=== PATIENT | female | born 1985 | race Caucasian/White ===

== ENCOUNTER 2019-02-10 14:57 | Emergency (ER) | payer OTHER ==
[~2019-02-10] VITALS: Ht 172.7 cm; Wt 86.2 kg
[2019-02-10] MEDS ORDERED: AMOXICILLIN 50500 MG PO (15:12)
[2019-02-10] MEDS ORDERED: TYLENOL WITH CO1 TA1 PO (15:12)
[2019-02-10] MEDS ORDERED: LIDOCAINE VISC100 ML SWISH&SPIT (15:12)
[2019-02-10 15:15] VITALS: BP 119/55
== END 2019-02-10 15:16 | disposition home or self-care (01) ==
LOC: M.ERS 14:57
DX: K04.7 Periapical abscess without sinus (principal); K02.9 Dental caries, unspecified

== ENCOUNTER 2019-06-30 12:08 | Emergency (ER) | payer OTHER ==
[~2019-06-30] VITALS: Ht 172.7 cm; Wt 88.9 kg
[~2019-06-30 12:08] MED LIST: AMOXICILLIN 50500 MG PO; LIDOCAINE VISC100 ML SWISH&SPIT; TYLENOL WITH CO1 TA1 PO
[2019-06-30 12:22] LABS: URINE BILIRUBIN NEGATIVE (Negative); URINE BLOOD NEGATIVE (Negative); URINE CLARITY CLEAR; URINE COLOR YELLOW; URINE GLUCOSE-RANDOM NEGATIVE (Negative); URINE KETONES NEGATIVE (Negative); URINE LEUKOCYTES-REFLEX NEGATIVE (Negative); URINE NITRITE-REFLEX NEGATIVE (Negative); URINE PROTEIN NEGATIVE (Negative); URINE SPECIFIC GRAVITY 1.025 (1.005-1.030); URINE UROBILINOGEN 0.2 E.U./dl (0.2-1.0)
[2019-06-30 12:47] LABS: INFLUENZA A ANTIGEN Negative (Negative); INFLUENZA B ANTIGEN Negative (Negative)
[2019-06-30] MEDS ORDERED: PHENERGAN 25 MG25 M1 PO (13:01)
[2019-06-30] MEDS ORDERED: ZPAK PO (13:01)
[2019-06-30 13:22] VITALS: BP 125/69
== END 2019-06-30 13:24 | disposition home or self-care (01) ==
LOC: M.ERS 12:08
PROVIDERS: Nurse Practitioner Family
DX: B34.9 Viral infection, unspecified (principal); F17.210 Nicotine dependence, cigarettes, uncomplicated

== ENCOUNTER 2019-07-26 20:31 | Emergency (ER) | payer OTHER ==
[~2019-07-26] VITALS: Ht 172.7 cm; Wt 88.5 kg
[~2019-07-26 20:31] MED LIST changes: +PHENERGAN 25 MG25 M1 PO; +ZPAK PO
[2019-07-26 20:37] VITALS: BP 138/73
[2019-07-26] MEDS ORDERED: MIRENA1 EACH INTRAUTERI (20:41)
[2019-07-26] MEDS ORDERED: HYDROCODON-ACE1 EAC8 PO (20:57)
[2019-07-26] MEDS ORDERED: CLEOCIN HCL300 MG PO (20:57)
== END 2019-07-26 21:08 | disposition home or self-care (01) ==
LOC: M.ERS 20:31
DX: K02.9 Dental caries, unspecified (principal); F17.210 Nicotine dependence, cigarettes, uncomplicated

== ENCOUNTER 2019-09-05 12:01 | Emergency (ER) | payer OTHER ==
[~2019-09-05] VITALS: Ht 172.7 cm; Wt 81.7 kg
[~2019-09-05 12:01] MED LIST changes: +CLEOCIN HCL300 MG PO; +HYDROCODON-ACE1 EAC8 PO; +MIRENA1 EACH INTRAUTERI
[2019-09-05 12:10] VITALS: BP 132/48
[2019-09-05] MEDS ORDERED: ZPAK PO (12:41)
[2019-09-05] MEDS ORDERED: VENTOLIN HFA 1818 GM INH (12:41)
== END 2019-09-05 12:56 | disposition home or self-care (01) ==
LOC: M.ERS 12:01
DX: J06.9 Acute upper respiratory infection, unspecified (principal); F17.210 Nicotine dependence, cigarettes, uncomplicated; Z88.1 Allergy status to other antibiotic agents; Z88.2 Allergy status to sulfonamides

== ENCOUNTER 2019-09-27 07:56 | Emergency (ER) | payer OTHER ==
[~2019-09-27] VITALS: Ht 172.7 cm; Wt 82.6 kg
[~2019-09-27 07:56] MED LIST changes: +VENTOLIN HFA 1818 GM INH
[2019-09-27 08:40] LABS: HEMATOCRIT 38.5 % (37.0-47.0); HEMOGLOBIN 13.1 gm/dL (12.0-15.0); MCH 31.5 pg (26.0-34.0); MCHC 34.1 g/dL (28.0-37.0); MCV 92.5 fL (80.0-100.0); MPV 9.5 fl. (7.2-11.1); RBC 4.17 mil/uL (4.20-5.00); RDW-CV 13.1 % (10.5-14.5); WBC 4.7 thou/uL (4.0-11.0)
[2019-09-27 08:51] LABS: CALCIUM 8.1 mg/dL (8.5-10.1); CREATININE 0.8 mg/dL (0.6-1.3); POTASSIUM 4.2 mmol/L (3.5-5.1)
[2019-09-27] MEDS ORDERED: PREDNISONE50 MG PO (10:02)
[2019-09-27] MEDS ORDERED: VENTOLIN HFA 1818 GM INH (10:02)
[2019-09-27 10:58] VITALS: BP 94/54
--- NOTE | 2019-09-28 14:01 | EKG ---
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
== END 2019-09-27 10:52 | disposition home or self-care (01) ==
LOC: M.ERS 07:56
PROVIDERS: Emergency Medicine Emergency Medical Services
DX: J40 Bronchitis, not specified as acute or chronic (principal); Z20.828 Contact with and (suspected) exposure to other viral communicable diseases; Z88.1 Allergy status to other antibiotic agents; Z88.2 Allergy status to sulfonamides

== ENCOUNTER 2019-11-05 22:18 | Emergency (ER) | payer OTHER ==
[~2019-11-05] VITALS: Ht 172.7 cm; Wt 81.7 kg
[~2019-11-05 22:18] MED LIST changes: +PREDNISONE50 MG PO
[2019-11-05] MEDS ORDERED: PREDNISONE50 MG PO (23:23)
[2019-11-05] MEDS ORDERED: PROAIR HFA8.5 GM INH (23:23)
[2019-11-05 23:32] VITALS: BP 96/65
== END 2019-11-05 23:36 | disposition home or self-care (01) ==
LOC: M.ERS 22:18
DX: J40 Bronchitis, not specified as acute or chronic (principal); Z88.1 Allergy status to other antibiotic agents; Z88.8 Allergy status to other drugs, medicaments and biological substances; Z79.899 Other long term (current) drug therapy

== ENCOUNTER 2019-12-16 17:02 | Emergency (ER) | payer OTHER ==
[~2019-12-16] VITALS: Ht 172.7 cm; Wt 81.7 kg
[~2019-12-16 17:02] MED LIST changes: +PROAIR HFA8.5 GM INH
[2019-12-16 18:11] LABS: INFLUENZA A ANTIGEN Negative (Negative); INFLUENZA B ANTIGEN Negative (Negative)
[2019-12-16] MEDS ORDERED: ZPAK PO (18:30)
[2019-12-16] MEDS ORDERED: MEDROLDOSEPACK PO (18:30)
[2019-12-16] MEDS ORDERED: PROMETH-CODEIN 65 ML PO (18:30)
[2019-12-16 18:40] VITALS: BP 136/70
== END 2019-12-16 18:41 | disposition home or self-care (01) ==
LOC: M.ERS 17:02
PROVIDERS: Nurse Practitioner Family
DX: J20.9 Acute bronchitis, unspecified (principal); Z20.828 Contact with and (suspected) exposure to other viral communicable diseases; Z88.1 Allergy status to other antibiotic agents; Z88.2 Allergy status to sulfonamides

== ENCOUNTER 2020-01-02 08:55 | Emergency (ER) | payer OTHER ==
[~2020-01-02] VITALS: Ht 172.7 cm; Wt 81.7 kg
[~2020-01-02 08:55] MED LIST changes: +MEDROLDOSEPACK PO; +PROMETH-CODEIN 65 ML PO
[2020-01-02 09:04] VITALS: BP 129/90
== END 2020-01-02 10:18 | disposition home or self-care (01) ==
LOC: M.ERS 08:55
DX: B34.9 Viral infection, unspecified (principal); Z20.828 Contact with and (suspected) exposure to other viral communicable diseases; Z88.2 Allergy status to sulfonamides

== ENCOUNTER 2020-01-19 06:42 | Emergency (ER) | payer OTHER ==
[~2020-01-19] VITALS: Ht 172.7 cm; Wt 81.2 kg
[2020-01-19 06:50] VITALS: BP 112/71
[2020-01-19] MEDS ORDERED: PENICILLIN VK500 MG PO (07:20)
[2020-01-19] MEDS ORDERED: NORCO 5-325 TA1 EAC2 PO (07:20)
[2020-01-19] MEDS ORDERED: IBUPROFEN 800800 M1 PO (07:20)
== END 2020-01-19 07:36 | disposition home or self-care (01) ==
LOC: M.ERS 06:42
DX: K08.89 Other specified disorders of teeth and supporting structures (principal); F17.210 Nicotine dependence, cigarettes, uncomplicated; Z88.2 Allergy status to sulfonamides

== ENCOUNTER 2020-01-23 12:50 | Emergency (ER) | payer OTHER ==
[~2020-01-23] VITALS: Ht 167.6 cm; Wt 81.7 kg
[~2020-01-23 12:50] MED LIST changes: +IBUPROFEN 800800 M1 PO; +NORCO 5-325 TA1 EAC2 PO; +PENICILLIN VK500 MG PO
[2020-01-23 13:40] VITALS: BP 133/76
== END 2020-01-23 13:41 | disposition home or self-care (01) ==
LOC: M.ERS 12:50
DX: Z20.828 Contact with and (suspected) exposure to other viral communicable diseases (principal); Z88.2 Allergy status to sulfonamides

== ENCOUNTER 2020-04-06 10:47 | Emergency (ER) | payer OTHER ==
[~2020-04-06] VITALS: Ht 172.7 cm; Wt 77.1 kg
[2020-04-06 11:01] LABS: URINE BILIRUBIN NEGATIVE (Negative); URINE BLOOD NEGATIVE (Negative); URINE CLARITY CLEAR; URINE COLOR YELLOW; URINE GLUCOSE-RANDOM NEGATIVE (Negative); URINE KETONES NEGATIVE (Negative); URINE LEUKOCYTES-REFLEX NEGATIVE (Negative); URINE NITRITE-REFLEX NEGATIVE (Negative); URINE PROTEIN NEGATIVE (Negative); URINE UROBILINOGEN 0.2 E.U./dl (0.2-1.0)
[2020-04-06 11:39] VITALS: BP 118/62
== END 2020-04-06 11:39 | disposition home or self-care (01) ==
LOC: M.ERS 10:47
PROVIDERS: Nurse Practitioner Family
DX: J98.8 Other specified respiratory disorders (principal); Z20.822 Contact with and (suspected) exposure to COVID-19; R19.7 Diarrhea, unspecified; Z88.1 Allergy status to other antibiotic agents; Z88.2 Allergy status to sulfonamides

== ENCOUNTER 2020-04-17 05:26 | Emergency (ER) | payer OTHER ==
[~2020-04-17] VITALS: Ht 172.7 cm; Wt 77.1 kg
[2020-04-17] MEDS ORDERED: PROAIR HFA8.5 GM INH (05:44)
[2020-04-17 06:08] LABS: INFLUENZA A ANTIGEN Negative (Negative); INFLUENZA B ANTIGEN Negative (Negative)
[2020-04-17] MEDS ORDERED: PREDNISONE50 MG PO (06:37)
[2020-04-17] MEDS ORDERED: HYDROCODONE-ACE15 ML PO (06:37)
[2020-04-17 06:43] VITALS: BP 114/86
== END 2020-04-17 06:46 | disposition home or self-care (01) ==
LOC: M.ERS 05:26
PROVIDERS: Emergency Medicine
DX: J06.9 Acute upper respiratory infection, unspecified (principal); J04.0 Acute laryngitis; Z20.822 Contact with and (suspected) exposure to COVID-19; Z88.1 Allergy status to other antibiotic agents; Z88.2 Allergy status to sulfonamides

== ENCOUNTER 2020-05-12 05:15 | Emergency (ER) | payer OTHER ==
[~2020-05-12] VITALS: Ht 172.7 cm; Wt 78.5 kg
[~2020-05-12 05:15] MED LIST changes: +HYDROCODONE-ACE15 ML PO
[2020-05-12] MEDS ORDERED: PREDNISONE50 MG PO (06:35)
[2020-05-12 06:41] VITALS: BP 127/71
== END 2020-05-12 06:41 | disposition home or self-care (01) ==
LOC: M.ERS 05:15
DX: J40 Bronchitis, not specified as acute or chronic (principal); Z20.822 Contact with and (suspected) exposure to COVID-19; Z88.2 Allergy status to sulfonamides; Z88.1 Allergy status to other antibiotic agents

== ENCOUNTER 2020-06-17 05:34 | Emergency (ER) | payer OTHER ==
[~2020-06-17] VITALS: Ht 172.7 cm; Wt 77.1 kg
[2020-06-17] MEDS ORDERED: PROAIR HFA8.5 GM INH ×2 (05:44→06:32)
[2020-06-17] MEDS ORDERED: PREDNISONE50 MG PO (06:32)
[2020-06-17] MEDS ORDERED: FLONASE 0.05%50 MCG NARES (06:32)
[2020-06-17 06:42] VITALS: BP 120/76
--- NOTE | 2020-06-18 12:07 | EKG ---
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[place] : 1985 Requested By: Tiffany Frost Order Number: [id number] Rod MD: Salty Whitney Measurements Intervals [place] Rate: 72 P: 68 [place]: 170 QRS: 67 QRSD: 84 T: 34 QT: 364 QTc: 399 Interpretive Statements Sinus rhythm Baseline wander in lead(s) I,II,aVR Compared to ECG 09/27/2019 08:05:50 No significant changes Electronically Signed On 06-18-2020 12:07:29 CDT by Salty Whitney [email or web address] <ELECTRONICALLY SIGNED> By: Salty Whitney MD, [facility] 06/18/20 1207 0538 0538 Salty Whitney MD, [facility] /EPI
== END 2020-06-17 06:42 | disposition home or self-care (01) ==
LOC: M.ERS 05:34
DX: J98.01 Acute bronchospasm (principal); Z20.822 Contact with and (suspected) exposure to COVID-19; Z88.1 Allergy status to other antibiotic agents; Z88.2 Allergy status to sulfonamides

== ENCOUNTER 2020-06-23 09:28 | Emergency (ER) | payer OTHER ==
[~2020-06-23] VITALS: Ht 172.7 cm; Wt 77.1 kg
[~2020-06-23 09:28] MED LIST changes: +FLONASE 0.05%50 MCG NARES
[2020-06-23] MEDS ORDERED: TRAMADOL 50 MG50 MG PO (09:51)
[2020-06-23] MEDS ORDERED: CLEOCIN HCL300 MG PO (09:51)
[2020-06-23 09:55] VITALS: BP 144/94
== END 2020-06-23 09:55 | disposition home or self-care (01) ==
LOC: M.ERS 09:28
DX: K02.9 Dental caries, unspecified (principal); Z88.1 Allergy status to other antibiotic agents; Z88.8 Allergy status to other drugs, medicaments and biological substances; Z79.899 Other long term (current) drug therapy

== ENCOUNTER 2020-07-14 05:34 | Emergency (ER) | payer OTHER ==
[~2020-07-14] VITALS: Ht 172.7 cm; Wt 77.1 kg
[~2020-07-14 05:34] MED LIST changes: +TRAMADOL 50 MG50 MG PO
[2020-07-14 05:40] VITALS: BP 129/77
[2020-07-14] MEDS ORDERED: PROAIR HFA8.5 GM INH (05:44)
[2020-07-14] MEDS ORDERED: MEDROLDOSEPACK PO (06:12)
[2020-07-14] MEDS ORDERED: PENICILLIN VK500 MG PO (06:12)
--- NOTE | 2020-07-14 09:44 | EKG ---
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
== END 2020-07-14 06:29 | disposition home or self-care (01) ==
LOC: M.ERS 05:34
DX: J45.901 Unspecified asthma with (acute) exacerbation (principal); A69.1 Other Vincent's infections; Z88.1 Allergy status to other antibiotic agents; Z88.2 Allergy status to sulfonamides

== ENCOUNTER 2020-07-21 08:24 | Emergency (ER) | payer OTHER ==
[~2020-07-21] VITALS: Ht 172.7 cm; Wt 77.1 kg
[2020-07-21] MEDS ORDERED: PENICILLIN V P500 MG PO (10:21)
[2020-07-21 10:37] VITALS: BP 122/68
== END 2020-07-21 10:37 | disposition home or self-care (01) ==
LOC: M.ERS 08:24
DX: K04.7 Periapical abscess without sinus (principal); K02.9 Dental caries, unspecified; Z88.1 Allergy status to other antibiotic agents; Z88.2 Allergy status to sulfonamides

== ENCOUNTER 2020-09-09 10:34 | Emergency (ER) | payer OTHER ==
[~2020-09-09] VITALS: Ht 172.7 cm; Wt 77.1 kg
[~2020-09-09 10:34] MED LIST changes: +PENICILLIN V P500 MG PO
[2020-09-09 11:18] LABS: URINE BILIRUBIN NEGATIVE (Negative); URINE BLOOD NEGATIVE (Negative); URINE CLARITY CLEAR; URINE COLOR YELLOW; URINE GLUCOSE-RANDOM NEGATIVE (Negative); URINE KETONES NEGATIVE (Negative); URINE LEUKOCYTES 2+ (Negative); URINE NITRITE POSITIVE (Negative); URINE PROTEIN NEGATIVE (Negative); URINE SPECIFIC GRAVITY 1.015 (1.005-1.030); URINE UROBILINOGEN 0.2 E.U./dl (0.2-1.0)
[2020-09-09 11:31] LABS: BACTERIA >30 Many /HPF (None Seen); CASTS None Seen /LPF (None Seen); CRYSTALS None Seen /LPF (None Seen); SQUAMOUS 0-3 Few /LPF (0-3); URINE RBC 0-2 Rare /HPF (0-2); URINE WBC 6-15 Few /HPF (0-5)
[2020-09-09 12:15] VITALS: BP 129/77
[2020-09-09] MEDS ORDERED: AUGMENTIN 875-1 EACH PO (12:15)
[2020-09-09] MEDS ORDERED: ZOFRAN ODT4 MG DISSOLVE (12:15)
== END 2020-09-09 12:15 | disposition home or self-care (01) ==
LOC: M.ERS 10:34
PROVIDERS: Emergency Medicine Emergency Medical Services
DX: N39.0 Urinary tract infection, site not specified (principal); Z20.822 Contact with and (suspected) exposure to COVID-19; Z88.2 Allergy status to sulfonamides; Z88.1 Allergy status to other antibiotic agents